=== PATIENT | male | born 1990 | race Caucasian/White ===

== ENCOUNTER 2017-12-09 08:21 | Outpatient (RCR) | payer OTHER | END 2018-01-23 | disposition home or self-care (01) | LOC: WSOH | DX: S93.402A Sprain of unspecified ligament of left ankle, initial encounter (principal); X58.XXXA Exposure to other specified factors, initial encounter; Y93.01 Activity, walking, marching and hiking; Y92.219 Unspecified school as the place of occurrence of the external cause; Y99.0 Civilian activity done for income or pay ==

== ENCOUNTER 2018-02-08 15:03 | Outpatient (RCR) | payer OTHER | END 2018-04-24 | disposition home or self-care (01) | LOC: WSOH | DX: S93.402A Sprain of unspecified ligament of left ankle, initial encounter (principal); X58.XXXA Exposure to other specified factors, initial encounter; Y92.219 Unspecified school as the place of occurrence of the external cause; Y99.0 Civilian activity done for income or pay ==

== ENCOUNTER 2019-12-21 00:20 | Emergency (ER) | payer OTHER ==
[~2019-12-21] VITALS: Ht 180.3 cm; Wt 88.6 kg
[2019-12-21 00:50] LABS: BASO % 0.6 % (0.0-2.0); EOS # 0.2 (0.0-0.7); EOS % 2.8 % (0-4.0); GRAN % 58.2 % (42.2-75.2); HEMATOCRIT 43.5 % (42.0-52.0); HEMOGLOBIN 14.9 g/dl (13.5-18.0); LYMPH # 1.9 (1.2-3.4); LYMPH % 27.7 % (20.0-51.0); MEAN CELL VOLUME 90 fl (80.0-100.0); MEAN CORPUSCULAR HEMOGLOBIN 31 pg (27.0-31.0); MEAN CORPUSCULAR HGB CONC 34 g/dl (33.0-37.0); MEAN PLATELET VOLUME 9.7 fl (7.4-10.4); MONO # 0.7 (0.1-0.6); MONO % 10.1 % (1.7-9.3); PLATELET COUNT 230 K/mm3 (130-400); RED BLOOD COUNT 4.83 M/mm3 (4.20-5.60); REDCELL DISTRIBUTION WIDTH-CV 11.9 % (11.5-14.5)
[2019-12-21 01:24] LABS: ALBUMIN 4.3 gm/dL (3.5-5.0); BILIRUBIN,TOTAL 0.8 mg/dL (0.0-1.0); C-REACTIVE PROTEIN 0.8 mg/dL (0.0-0.9); CALCIUM 9.3 mg/dL (8.4-10.2); CREATININE, serum 1.02 (0.66-1.25); POTASSIUM 3.2 mmol/L (3.4-5.0); TOTAL PROTEIN 7.4 gm/dL (6.4-8.2)
[2019-12-21 02:18] LABS: COLLECTION METHOD CLEAN CATCH
[2019-12-21 02:26] LABS: AMORPHOUS CRYSTAL Present /uL; MUCOUS Present /lpf; PH 9 (5-8); SQUAMOUS EPITHELIAL None Seen /hpf; URINE APPEARANCE Hazy; URINE BACTERIA None Seen /hpf; URINE BILIRUBIN Negative (NEGATIVE); URINE BLOOD Negative (NEGATIVE); URINE COLOR Yellow; URINE GLUCOSE Negative (NEGATIVE); URINE KETONE 2+ (NEGATIVE); URINE LEUKOCYTE ESTERASE Negative (NEGATIVE); URINE NITRATE Negative (NEGATIVE); URINE PROTEIN(semi-quant) 1+ (NEGATIVE); URINE UROBILINOGEN Negative (NEGATIVE)
[2019-12-21 05:33] VITALS: BP 146/74; PULSE 69; TEMP 98
== END 2019-12-21 06:01 | disposition home or self-care (01) ==
LOC: COL.ER 00:20
PROVIDERS: Emergency Medicine
DX: N20.1 Calculus of ureter (principal); Z88.2 Allergy status to sulfonamides
CPT/HCPCS: J1170; J1885; J2405; J7030

== ENCOUNTER 2022-02-27 04:51 | Emergency (ER) | payer OTHER ==
[~2022-02-27] VITALS: Ht 180.3 cm; Wt 85.9 kg
[2022-02-27 05:01] VITALS: TEMP 97.9
[2022-02-27 05:53] LABS: BASO % 0.5 % (0.0-2.0); EOS # 0.1 K/mm3 (0.0-0.7); EOS % 1.9 % (0.0-4.0); GRAN # 3.9 K/mm3 (1.4-6.5); GRAN % 63.7 % (42.2-75.2); HEMATOCRIT 43.4 % (42.0-52.0); HEMOGLOBIN 14.9 g/dl (13.5-18.0); LYMPH # 1.4 K/mm3 (1.2-3.4); LYMPH % 22.1 % (20.0-51.0); MEAN CELL VOLUME 91 fl (80.0-100.0); MEAN CORPUSCULAR HEMOGLOBIN 31 pg (27-31); MEAN CORPUSCULAR HGB CONC 34 g/dl (33.0-37.0); MEAN PLATELET VOLUME 10.3 fl (7.4-10.4); MONO # 0.7 K/mm3 (0.1-0.6); MONO % 11.5 % (1.7-9.3); PLATELET COUNT 244 K/mm3 (130-400); RED BLOOD COUNT 4.77 M/mm3 (4.20-5.60)
[2022-02-27 06:17] LABS: CREATININE, serum 0.9 mg/dL (0.72-1.25)
[2022-02-27 06:18] LABS: BILIRUBIN,TOTAL 0.7 mg/dL (0.2-1.2); CALCIUM 9.1 mg/dL (8.4-10.2); TOTAL PROTEIN 7.1 gm/dL (6.2-8.1)
[2022-02-27] MEDS ORDERED: NORCO 325 MG-51 TAB PO (06:23)
[2022-02-27 06:42] LABS: COLLECTION METHOD CLEAN CATCH
[2022-02-27 06:51] LABS: PH 5.5 (5.0-8.5); SQUAMOUS EPITHELIAL None Seen /hpf (0-10); URINE APPEARANCE Clear (CLEAR/HAZY); URINE BACTERIA None Seen /hpf (NONE SEEN); URINE BLOOD Negative (NEGATIVE); URINE COLOR Yellow (YELLOW); URINE GLUCOSE Negative (NEGATIVE); URINE KETONE Negative (NEGATIVE); URINE NITRATE Negative (NEGATIVE); URINE PROTEIN(semi-quant) Negative (NEGATIVE); URINE RBC 0-2 /hpf (0-2); URINE UROBILINOGEN 0.2 E.U/dL (0.2-1.0)
[2022-02-27] MEDS ORDERED: DOXYCYCLINE 10100 MG PO (07:42)
[2022-02-27 07:55] VITALS: BP 127/87; PULSE 67
== END 2022-02-27 07:59 | disposition home or self-care (01) ==
LOC: COL.ER 04:51
PROVIDERS: Personal Emergency Response Attendant
DX: R10.9 Unspecified abdominal pain (principal); J18.1 Lobar pneumonia, unspecified organism; Z88.2 Allergy status to sulfonamides
CPT/HCPCS: J7030; Q9967

== ENCOUNTER 2022-02-27 19:08 | Emergency (ER) | payer OTHER ==
[~2022-02-27] VITALS: Ht 180.3 cm; Wt 85.9 kg
[~2022-02-27 19:08] MED LIST: DOXYCYCLINE 10100 MG PO; NORCO 325 MG-51 TAB PO
[2022-02-27 19:17] VITALS: TEMP 98.4
[2022-02-27 21:00] VITALS: BP 120/83; PULSE 66
== END 2022-02-27 21:00 | disposition home or self-care (01) ==
LOC: COL.ER 19:08
DX: J18.9 Pneumonia, unspecified organism (principal); Z88.2 Allergy status to sulfonamides